=== PATIENT | female | born 1955 | race Asian ===

== ENCOUNTER 2021-09-19 22:55 | Emergency (ER) | payer OTHER ==
[~2021-09-19] VITALS: Ht 170.1 cm; Wt 82.6 kg
[~2021-09-19 22:55] MED LIST: BACTRIM DS 8001 TA1 PO; CARAFATE1 G1 PO; PROTONIX40 MG PO; PYRIDIUM200 MG PO
[2021-09-19 23:19] LABS: BASO # 0.1 10*3/uL (0.0-0.1); BASO % 0.9 % (0.0-1.0); EOS # 0.2 10*3/uL (0.0-0.4); EOS % 4.4 % (1.0-4.0); HEMATOCRIT 40.1 % (37.0-47.0); LYMPH # 1.8 10*3/uL (1.3-4.4); LYMPH % 32.7 % (27.0-41.0); MEAN CELL VOLUME 93.7 fl (81.0-99.0); MEAN CORPUSCULAR HGB 30.4 pg (27.0-31.0); MEAN CORPUSCULAR HGB CONC 32.4 g/dl (33.0-37.0); MONO # 0.8 10*3/uL (0.1-1.0); MONO % 14.3 % (3.0-9.0); NEUT # 2.6 10*3/uL (2.3-7.9); NEUT % 47.5 % (47.0-73.0); PLATELET COUNT AUTOMATED 151 10*3/uL (130-400); RED BLOOD COUNT 4.28 10*6/uL (4.10-5.10); RED CELL DISTRI WIDTH 13.1 % (0-14.5); WHITE BLOOD COUNT 5.4 10*3/uL (4.8-10.8)
[2021-09-19 23:36] LABS: ALKALINE PHOSPHATASE 55 U/L (45-117); BUN 13 mg/dl (7-24); CHLORIDE 105 mmol/L (98-107); CREATININE 0.86 mg/dL (0.55-1.02); LIPASE 121 U/L (73-393); POTASSIUM 4.4 mmol/L (3.5-5.1); SGOT/AST 21 IU/L (3-35); SGPT/ALT 29 U/L (12-78); SODIUM 140 mmol/L (136-145); TOTAL PROTEIN 7.9 gm/dL (6.4-8.2)
[2021-09-20 00:03] LABS: BILIRUBIN Negative (Negative); BLOOD Negative (Negative); CLARITY Clear (Clear); COLOR Yellow (Yellow); GLUCOSE Negative (Negative); KETONE Negative (Negative); LEUKO ESTERASE 1+ (Negative); NITRITE Negative (Negative); PH 5.5 (4.5-8.0); SPECIFIC GRAVITY <= 1.005 (1.001-1.030); UROBILINOGEN 0.2 E.U./dl (0.0-1.0)
[2021-09-20] MEDS ORDERED: CIPRO500 MG PO (03:15)
[2021-09-20] MEDS ORDERED: PROTONIX20 MG PO (03:15)
== END 2021-09-20 03:20 | disposition home or self-care (01) ==
LOC: ED 22:55
PROVIDERS: Emergency Medicine
DX: K29.00 Acute gastritis without bleeding (principal); N39.0 Urinary tract infection, site not specified